=== PATIENT | male | born 1985 | race Caucasian/White ===

== ENCOUNTER 2024-03-23 11:29 | Emergency (ER) | payer MEDICAID ==
[~2024-03-23] VITALS: Ht 167.6 cm; Wt 70.0 kg
[2024-03-23 11:45] VITALS: TEMP 98; O2SAT 99
[2024-03-23 12:15] VITALS: BP 139/84; PULSE 78; RESP 18
[2024-03-23] MEDS: IBUPROFEN 600MG TABLET PO ONE (12:15)
== END 2024-03-23 13:28 | disposition home or self-care (01) ==
LOC: ER 12:56
DX: M79.631 Pain in right forearm (principal)
CPT/HCPCS: 73090; 73120; 99284

== ENCOUNTER 2024-04-15 12:08 | Emergency (ER) | payer MEDICAID ==
[~2024-04-15] VITALS: Ht 170.2 cm; Wt 63.0 kg
[2024-04-15 12:14] VITALS: O2SAT 99
[2024-04-15 13:11] LABS: BASOPHILS % 1.8 % (0.0-2.0); EOSINOPHILS % 0.2 % (0.0-5.0); HEMATOCRIT. 41.5 % (42.0-52.0); HEMOGLOBIN. 13.8 g/dL (14.0-18.0); LYMPHOCYTES % 15.4 % (20.0-50.0); MEAN CORPUSCULAR HEMOGLOBIN 30.9 pg (28.0-32.0); MEAN CORPUSCULAR HGB CONC 33.3 g/dL (31.0-37.0); MEAN CORPUSCULAR VOLUME 92.7 fL (80.0-94.0); MONOCYTES % 7.1 % (2.0-8.0); NEUTROPHILS % 75.5 % (40.0-76.0); PLATELET 238 x1000/uL (130-400); RED BLOOD CELL COUNT 4.47 mill/uL (4.7-6.1); RED CELL DISTRIBUTION WIDTH 13.5 % (11.6-14.6); WHITE BLOOD COUNT 4.3 x1000/uL (4.5-11.0)
[2024-04-15] MEDS ORDERED: ONDANSETRON HCL 4MG TABLET PO ONE (13:15)
[2024-04-15] MEDS ORDERED: ACETAMINOPHEN 325MG TABLET PO ONE (13:15)
[2024-04-15 13:16] LABS: CHLORIDE 100 mEq/L (98-107); POTASSIUM 4.1 mEq/L (3.5-5.1); SODIUM 138 mEq/L (136-145)
[2024-04-15 13:17] LABS: CALCIUM 10.1 mg/dL (8.7-10.4); CARBON DIOXIDE 29 mEq/L (21-32)
[2024-04-15 13:22] LABS: CREATININE 0.7 mg/dL (0.6-1.3); GLUCOSE 112 mg/dL (70-105)
[2024-04-15 13:23] LABS: UREA NITROGEN BLOOD 10 mg/dL (9-23)
[2024-04-15 13:24] LABS: ALANINE AMINOTRANSFERASE 142 IU/L (10-49); ALBUMIN 5.4 g/dL (3.2-4.8); ASPARTATE AMINOTRANSFERASE 130 IU/L (<34)
[2024-04-15 13:25] LABS: BILIRUBIN DIRECT 0.2 mg/dL (<=3.0); BILIRUBIN TOTAL 0.6 mg/dL (0.1-1.0); PROTEIN TOTAL 8.4 g/dL (6.0-8.3)
[2024-04-15 13:55] LABS: CLARITY URINE CLEAR (CLEAR); COLOR URINE DARK YELLOW (YELLOW); GLUCOSE URINE NEGATIVE (NEGATIVE); KETONES URINE NEGATIVE (NEGATIVE); LEUKOCYTE ESTERASE URINE TRACE (NEGATIVE); NITRITE URINE NEGATIVE (NEGATIVE); OCCULT BLOOD URINE NEGATIVE (NEGATIVE); PH URINE 8.5 (4.5-8.0); PROTEIN URINE 2+ (NEGATIVE); SPECIFIC GRAVITY URINE 1.028 (1.005-1.030)
[2024-04-15 14:33] LABS: MUCUS URINE 1+ /lpf (NONE/TRACE)
[2024-04-15 14:34] LABS: BACTERIA URINE TRACE; SQUAMOUS EPITHELIAL CELL URINE RARE /lpf (RARE/1+)
[2024-04-15 14:35] LABS: WBC URINE 0-2 /hpf (0-2)
[2024-04-15 14:36] LABS: RBC URINE 0-2 /hpf (0-2)
[2024-04-15] MEDS: ACETAMINOPHEN 325MG TABLET PO NR (16:11)
[2024-04-15] MEDS: ONDANSETRON HCL 4MG TABLET PO NR (16:11)
[2024-04-15] MEDS: DEXAMETHASONE 10 MG/ML VIAL IM ONE (16:12)
[2024-04-15] MEDS: KETOROLAC 15MG/ML VIAL IM ONE (16:12)
[2024-04-15 16:17] VITALS: TEMP 98.4
[2024-04-15 17:04] VITALS: BP 130/70; PULSE 88; RESP 15
== END 2024-04-15 17:05 | disposition home or self-care (01) ==
LOC: ER 12:30
DX: K29.70 Gastritis, unspecified, without bleeding (principal); R51.9 Headache, unspecified; Z20.822 Contact with and (suspected) exposure to COVID-19
CPT/HCPCS: 80076; 80048; 81003; 83690; 85025; 36415; 71045; 70450; 96372; 99285; 87426; Q0162; J1100; J1885; Z7610

== ENCOUNTER 2024-12-22 22:15 | Emergency (ER) | payer SELFPAY ==
[~2024-12-22] VITALS: Ht 162.6 cm; Wt 66.0 kg
[2024-12-22 22:45] VITALS: TEMP 36.7; O2SAT 97
[2024-12-22] MEDS: ONDANSETRON 4MG ODT PO STA (23:02)
[2024-12-22] MEDS: MAGNESIUM/ALUMINUM HYDROXIDE/SIMETHICONE 30ML UDC PO STA (23:02)
[2024-12-22 23:20] LABS: BASOPHILS % 1.4 % (0.0-2.0); EOSINOPHILS % 1.8 % (0.0-5.0); HEMATOCRIT. 43.7 % (42.0-52.0); HEMOGLOBIN. 14.6 g/dL (14.0-18.0); LYMPHOCYTES % 39.7 % (20.0-50.0); MEAN CORPUSCULAR HEMOGLOBIN 30.3 pg (28.0-32.0); MEAN CORPUSCULAR HGB CONC 33.4 g/dL (31.0-37.0); MEAN CORPUSCULAR VOLUME 90.9 fL (80.0-94.0); MEAN PLATELET VOLUME 7.6 fl (7.4-10.4); MONOCYTES % 8.5 % (2.0-8.0); NEUTROPHILS % 48.6 % (40.0-76.0); PLATELET 265 x1000/uL (130-400); RED BLOOD CELL COUNT 4.81 mill/uL (4.7-6.1); RED CELL DISTRIBUTION WIDTH 13.3 % (11.6-14.6); WHITE BLOOD COUNT 4.7 x1000/uL (4.5-11.0)
[2024-12-22 23:34] LABS: CARBON DIOXIDE 27 mEq/L (21-32); CHLORIDE 103 mEq/L (98-107); POTASSIUM 3.5 mEq/L (3.5-5.1); SODIUM 139 mEq/L (136-145)
[2024-12-22 23:35] LABS: CALCIUM 9.5 mg/dL (8.7-10.4)
[2024-12-22 23:39] LABS: CREATININE 0.8 mg/dL (0.6-1.3)
[2024-12-22 23:39] LABS: CLARITY URINE CLEAR (CLEAR); COLOR URINE YELLOW (YELLOW); GLUCOSE URINE NEGATIVE (NEGATIVE); KETONES URINE NEGATIVE (NEGATIVE); LEUKOCYTE ESTERASE URINE NEGATIVE (NEGATIVE); NITRITE URINE NEGATIVE (NEGATIVE); OCCULT BLOOD URINE NEGATIVE (NEGATIVE); PROTEIN URINE NEGATIVE (NEGATIVE); SPECIFIC GRAVITY URINE 1.003 (1.005-1.030); UROBILINOGEN URINE 0.2 E.U./dL (0.2-1.0)
[2024-12-22 23:40] LABS: GLUCOSE 103 mg/dL (70-105); UREA NITROGEN BLOOD 9 mg/dL (9-23)
[2024-12-22 23:41] LABS: ALANINE AMINOTRANSFERASE 87 IU/L (10-49); ASPARTATE AMINOTRANSFERASE 84 IU/L (<34)
[2024-12-22 23:42] LABS: ALBUMIN 4.6 g/dL (3.2-4.8); BILIRUBIN DIRECT 0.1 mg/dL (<=3.0); BILIRUBIN TOTAL 0.5 mg/dL (0.1-1.0)
[2024-12-22] MEDS ORDERED: ONDA-239 PO (23:52)
[2024-12-22] MEDS ORDERED: FAMO20TA8 MT (23:52)
[2024-12-22 23:55] VITALS: BP 114/85; PULSE 74; RESP 14; O2SAT 98
== END 2024-12-22 23:58 | disposition home or self-care (01) ==
LOC: ER 22:15
DX: K29.70 Gastritis, unspecified, without bleeding (principal); F10.90 Alcohol use, unspecified, uncomplicated; Y90.9 Presence of alcohol in blood, level not specified
CPT/HCPCS: 99283; 80076; 80048; 81003; 83690; 85025; 36415; Q0162